=== PATIENT | female | born 1995 | race Caucasian/White ===

== ENCOUNTER 2017-11-08 22:10 | Emergency (ER) | payer OTHER ==
[~2017-11-08] VITALS: Ht 165.1 cm; Wt 86.2 kg
[2017-11-08] MEDS ORDERED: UNISOM50 MG PO (22:26)
[2017-11-08] MEDS ORDERED: PRENATA CHEWAB1 EACH PO (22:27)
== END 2017-11-09 00:20 | disposition home or self-care (01) ==
LOC: ED 22:10
DX: O98.511 Other viral diseases complicating pregnancy, first trimester (principal); B34.9 Viral infection, unspecified; Z3A.11 11 weeks gestation of pregnancy; Z79.899 Other long term (current) drug therapy
CPT/HCPCS: 80053; 81001; 85025; 87502; 99284

== ENCOUNTER 2018-05-27 23:10 | Inpatient (IN) | payer BC, OTHER ==
[~2018-05-27] VITALS: Ht 165.1 cm; Wt 101.0 kg
[~2018-05-27 23:10] MED LIST: PRENATA CHEWAB1 EACH PO; UNISOM50 MG PO
[2018-05-28] MEDS ORDERED: AMOXICILLIN500 MG PO (01:34)
--- NOTE | 2018-05-28 08:59 | PR ---
[facility] [address] [place], [place] [address] Signed Progress Notes IP Datetime Report Generated by CPN: 05/28/2018 08:59 PROGRESS NOTES: [id number] Impression: Normal progression of labor; Reassuring heart rate Plan: Continue present management Informed Consent Obtain: Vaginal Delivery; Risks, Benefits and Alternatives Discussed VITAL SIGNS: [id number] Vital Signs: Reviewed; Within Normal Limits VS Notable Details: Mild tachycardia EXAM: [id number] Dilatation: 6.0 Effacement: 90 Station: -1 Uterine Contractions: q2-4 minutes MEMBRANES: [id number] Membrane Status: Bulging Comments: Pt seen and examined. Doing well. Comfortable w/ epidural. FHT Cat 1 and reassuring. Reviewed anticipated course of labor. All questions answered. PCN per protocol continues. Fetus A: [id number] FHR Baseline: 135 Variability: Moderate 6-25bpm Accelerations: 15X15 Decelerations: None FHR Category: Category I Presentation: Vertex Comments on Fetus A: No evidence of metabolic acidosis Fetus B: [id number] Signing Physician: Virgen Adan DO Copies: ~ *Electronically Signed* 05/28/18 0859 VIRGEN ADAN DO PATIENT NAME: LINNETTE LEARY PROGRESS NOTE DATE OF : 96 PHYSICIAN: VIRGEN ADAN DO RPT #: [id number] REPORT IS CONFIDENTIAL AND NOT TO BE RELEASED WITHOUT AUTHORIZATION
--- NOTE | 2018-05-28 11:28 | PR ---
[facility] [address] [place], [place] [address] Signed Progress Notes IP Datetime Report Generated by TERRELL: 05/28/2018 11:28 PROGRESS NOTES: [id number] Impression: Normal progression of labor; Reassuring heart rate Procedures: Artificial ROM Plan: Continue present management; Anesthesia consult; Anticipate Vaginal Delivery Informed Consent Obtain: Vaginal Delivery; Risks, Benefits and Alternatives Discussed Other Informed Consents: AROM VITAL SIGNS: [id number] Vital Signs: Reviewed; Within Normal Limits VS Notable Details: Mild tachycardia EXAM: [id number] Dilatation: 9.0 Effacement: 100 Station: -1 Uterine Contractions: q 2-5 minutes MEMBRANES: [id number] Membrane Status: Ruptured Amniotic Fluid Color: Meconium, Light ROM Note: Verbal consent obtained. AROM performed without difficulty for moderate amount meconium tinged fluid. Mother and baby tolerated well. Comments: Pt seen and examined. Doing well. Uncomfortable w/ ctxs' rating pain 7/10. Reviewed AROM and verbal consent obtained. AROM performed without difficulty for moderate amount of light meconium tinged fluid. Mother and baby tolerated will. Anesthesia notified and in to evaluate pain. Anticipate . Fetus A: [id number] FHR Baseline: 135 Variability: Moderate 6-25bpm Accelerations: 15X15 Decelerations: None FHR Category: Category I Presentation: Vertex Other Presentation: DARIELA Comments on Fetus A: No evidence of metabolic acidosis Fetus B: [id number] Signing Physician: Virgen Adan DO Copies: *Electronically Signed* 05/28/18 1128 VIRGEN ADAN DO PATIENT NAME: LINNETTE LEARY PROGRESS NOTE DATE OF : 96 PHYSICIAN: VIRGEN ADAN DO RPT #: [id number] REPORT IS CONFIDENTIAL AND NOT TO BE RELEASED WITHOUT AUTHORIZATION [facility] [address] [place] [place] [address] Signed ~ *Electronically Signed* 05/28/18 1128 VIRGEN ADAN DO PATIENT NAME: LINNETTE LERAY PROGRESS NOTE DATE OF : 96 PHYSICIAN: VIRGEN ADAN DO RPT #: [id number] REPORT IS CONFIDENTIAL AND NOT TO BE RELEASED WITHOUT AUTHORIZATION
--- NOTE | 2018-05-28 13:17 | PR ---
[facility] [address] [place], [place] [address] Signed Progress Notes IP Datetime Report Generated by TERRELL: 05/28/2018 13:17 PROGRESS NOTES: [id number] Impression: Normal progression of labor; Reassuring heart rate Procedures: Artificial ROM Plan: Continue present management Other Plans: Nitrous oxide Informed Consent Obtain: Vaginal Delivery; Risks, Benefits and Alternatives Discussed Other Informed Consents: AROM VITAL SIGNS: [id number] Vital Signs: Reviewed; Within Normal Limits VS Notable Details: Mild tachycardia EXAM: [id number] Dilatation: 9.0 Effacement: 100 Station: -1 Uterine Contractions: q 2-5 minutes MEMBRANES: [id number] Membrane Status: Ruptured Amniotic Fluid Color: Meconium, Light ROM Note: Verbal consent obtained. AROM performed without difficulty for moderate amount meconium tinged fluid. Mother and baby tolerated well. Comments: Pt seen and examined. Doing well. Anesthesia again bolused pt with minimal relief. Discussed nitrous oxide and pt desired. N20 administered and pt reports pain much improved. Reviewed reassuring FHT. Discussed anticipate course of 2nd stage of labor. All questions answered. Fetus A: [id number] FHR Baseline: 130 Variability: Moderate 6-25bpm Accelerations: 15X15 Decelerations: None FHR Category: Category I Presentation: Vertex Other Presentation: DARIELA Comments on Fetus A: No evidence of metabolic acidosis Fetus B: [id number] Signing Physician: Virgen Adan DO *Electronically Signed* 05/28/18 1317 VIRGEN ADAN DO PATIENT NAME: LINNETTE LEARY PROGRESS NOTE DATE OF : 96 PHYSICIAN: ADANVIRGEN DO RPT #: [id number] REPORT IS CONFIDENTIAL AND NOT TO BE RELEASED WITHOUT AUTHORIZATION [address] [place], [place] [address] Signed Copies: ~ *Electronically Signed* 05/28/18 1317 VIRGEN ADAN DO PATIENT NAME: LINNETTE LEARY PROGRESS NOTE DATE OF : 96 PHYSICIAN: VIRGEN ADAN DO RPT #: [id number] REPORT IS CONFIDENTIAL AND NOT TO BE RELEASED WITHOUT AUTHORIZATION
--- NOTE | 2018-05-28 14:20 | PR ---
[facility] [address] [place], [place] [address] Signed Progress Notes IP Datetime Report Generated by TERRELL: 05/28/2018 14:20 PROGRESS NOTES: [id number] Impression: Normal progression of labor; Reassuring heart rate Procedures: Sterile Vag Exam Plan: Continue present management Other Plans: Nitrous oxide Informed Consent Obtain: Vaginal Delivery Other Informed Consents: AROM VITAL SIGNS: Q2202258 Vital Signs: Reviewed; Within Normal Limits VS Notable Details: Mild tachycardia EXAM: [id number] Dilatation: 9.5 Effacement: 100 Station: 0 Uterine Contractions: q2-3 minutes MEMBRANES: [id number] Membrane Status: Ruptured Amniotic Fluid Color: Meconium, Light ROM Note: Verbal consent obtained. AROM performed without difficulty for moderate amount meconium tinged fluid. Mother and baby tolerated well. Comments: Pt seen and examined. Doing well. Comfortable w/ epidural and nitrous. Anterior lip and FHT reassuring. Anticipate . Will start pushing once complete. All questions answered. Fetus A: [id number] FHR Baseline: 135 Variability: Moderate 6-25bpm Accelerations: 15X15 Decelerations: Variable FHR Category: Category II Presentation: Vertex Other Presentation: DARIELA Comments on Fetus A: Variable deceleration w/ SVE. No evidence of metabolic acidosis Fetus B: [id number] Signing Physician: Virgen Adan DO *Electronically Signed* 05/28/18 1420 VIRGEN ADAN DO PATIENT NAME: LINNETTE LEARY PROGRESS NOTE DATE OF : 96 PHYSICIAN: VIRGEN ADAN DO RPT #: [id number] REPORT IS CONFIDENTIAL AND NOT TO BE RELEASED WITHOUT AUTHORIZATION [address] [place], [place] [address] Signed Copies: ~ *Electronically Signed* 05/28/18 1420 VIRGEN ADAN DO PATIENT NAME: LINNETTE LEARY PROGRESS NOTE DATE OF : 96 PHYSICIAN: VIRGEN ADAN DO RPT #: [id number] REPORT IS CONFIDENTIAL AND NOT TO BE RELEASED WITHOUT AUTHORIZATION
--- NOTE | 2018-05-28 15:26 | PR ---
[facility] [address] [place], [place] [address] Signed Progress Notes IP Datetime Report Generated by TERRELL: 05/28/2018 15:26 PROGRESS NOTES: [id number] Impression: Normal progression of labor; Reassuring heart rate Procedures: Scalp Electrode; Sterile Vag Exam Plan: Continue present management Other Plans: Nitrous oxide Informed Consent Obtain: Vaginal Delivery; Risks, Benefits and Alternatives Discussed Other Informed Consents: AROM VITAL SIGNS: [id number] Vital Signs: Reviewed; Within Normal Limits VS Notable Details: Mild tachycardia EXAM: [id number] Dilatation: 10.0 Effacement: 100 Station: 1 Uterine Contractions: q2 minutes MEMBRANES: [id number] Membrane Status: Ruptured Amniotic Fluid Color: Meconium, Light ROM Note: Verbal consent obtained. AROM performed without difficulty for moderate amount meconium tinged fluid. Mother and baby tolerated well. Comments: Pt seen and examined. Doing well. Pushes well w/ contractions. Variable decels noted w/ pushing w/ return to baseline and moderate variability. Discussed importance of accurate monitoring of fetus during 2nd stage of labor, and recommended FSE. Pt understands and agrees. Will push and anticipate . Reviewed risks and indications for operative vaginal and should they be required. Fetus A: [id number] FHR Baseline: 140 Variability: Moderate 6-25bpm Accelerations: 15X15 Decelerations: Variable FHR Category: Category II Presentation: Vertex Other Presentation: DARIELA Comments on Fetus A: Variable deceleration noted w/ pushing. Will monitor closely Fetus B: [id number] Signing Physician: Virgen Adan DO *Electronically Signed* 05/28/18 1526 ADAN,VIRGEN Spencer DO PATIENT NAME: LINNETTE LEARY PROGRESS NOTE DATE OF : 96 PHYSICIAN: VIRGEN ADAN DO RPT #: [id number] REPORT IS CONFIDENTIAL AND NOT TO BE RELEASED WITHOUT AUTHORIZATION [address] [place], [place] [address] Signed Copies: ~ *Electronically Signed* 05/28/18 [facility] JACOBSON,VIRGEN Spencer DO PATIENT NAME: LINNETTE LEARY PROGRESS NOTE DATE OF : 96 PHYSICIAN: VIRGEN ADAN DO RPT #: [id number] REPORT IS CONFIDENTIAL AND NOT TO BE RELEASED WITHOUT AUTHORIZATION
--- NOTE | 2018-05-29 10:54 | PR ---
[facility] [address] [place], [place] [address] Signed PP Progress Notes Datetime Report Generated by CPZiggy: 05/29/2018 10:53 SUBJECTIVE: [id number] Pain: Within normal limits Nausea/Vomiting: Denies Flatus: Yes Bowel Movement: No Vital Signs: [id number] Vital Signs: Reviewed; Within Normal Limits EXAM: [id number] Cardiovascular: Normal Respiratory: Normal Abdomen/Uterus: Normal Lochia: Normal Vulva/Perineum: Normal Breasts: Not Done CVA Tenderness: Normal Extremities: Normal Incision: Not Applicable Progress: Normal Exam Comments: Fundus firm U-2 nontender. Some vulvar edema noted but should not disrupt voiding. Arevalo cath remains in place draining clear urine. IMPRESSION/PLAN/PROCEDURES: [id number] Impression: Normal progression Plan: Continue present management Other Plans: D/C arevalo Progress Notes: Pt seen and examined. Doing well. Ambulating and tolering full diet. Arevalo cath remains in place due to some vulvar edema and pt requsting removal. Pain and lochia minimal. No fevers/chills/lightheadedness or other concerns. Anticipate d/c home tomorrow. Signing Physician: Virgen Adan DO Copies: ~ *Electronically Signed* 05/29/18 1053 VIRGEN ADAN DO PATIENT NAME: LINNETTE LEARY PROGRESS NOTE DATE OF : 96 PHYSICIAN: VIRGEN ADAN #: [id number] REPORT IS CONFIDENTIAL AND NOT TO BE RELEASED WITHOUT AUTHORIZATION
--- NOTE | 2018-05-30 08:21 | PR ---
[facility] [address] [place], [place] [address] Signed PP Progress Notes Datetime Report Generated by CPN: 05/30/2018 08:20 SUBJECTIVE: [id number] Pain: Within normal limits Nausea/Vomiting: Denies Flatus: Yes Bowel Movement: Yes Vital Signs: O0682743 Vital Signs: Reviewed EXAM: [id number] Cardiovascular: Normal Respiratory: Normal Abdomen/Uterus: Normal Lochia: Normal Vulva/Perineum: Not Done Breasts: Not Done CVA Tenderness: Normal Extremities: Normal Incision: Not Applicable Progress: Normal Exam Comments: Fundus Firm U-2 Nontender IMPRESSION/PLAN/PROCEDURES: [id number] Impression: Normal progression Plan: Discharge Other Plans: D/C arevalo Progress Notes: Pt seen and examined. Doing well. Ambulating, tolering full diet, and voiding w/out difficulty. Pain and lochia minimal. No fevers/chills/lightheadedness or other concerns. well. Desires d/c home today. Reviewed pp education and discharge instructions in detail. All questions answered. F/U Dr. Adan 2 wks. Signing Physician: Virgen Adan DO Copies: ~ *Electronically Signed* 05/30/18819 VIRGEN ADAN DO PATIENT NAME: LINNETTE LEARY PROGRESS NOTE DATE OF : 96 PHYSICIAN: VIRGEN ADAN #: [id number] REPORT IS CONFIDENTIAL AND NOT TO BE RELEASED WITHOUT AUTHORIZATION
== END 2018-05-30 14:30 | disposition home or self-care (01) | DRG 807 ==
LOC: FBCO 23:10 → FBC 05-28 00:50
PROVIDERS: ADMIT Obstetrics & Gynecology
PROC: 10E0XZZ Delivery of Products of Conception, External Approach (ICD-10-PCS; principal; 2018-05-28)
PROC: 0KQM0ZZ Repair Perineum Muscle, Open Approach (ICD-10-PCS; 2018-05-28)
PROC: 0UQMXZZ Repair Vulva, External Approach (ICD-10-PCS; 2018-05-28)
PROC: 10907ZC Drainage of Amniotic Fluid, Therapeutic from Products of Conception, Via Natural or Artificial Opening (ICD-10-PCS; 2018-05-28)
PROC: 00HU33Z Insertion of Infusion Device into Spinal Canal, Percutaneous Approach (ICD-10-PCS; 2018-05-28)
PROC: 3E0R3BZ Introduction of Anesthetic Agent into Spinal Canal, Percutaneous Approach (ICD-10-PCS; 2018-05-28)
DX: O99.824 Streptococcus B carrier state complicating childbirth (principal); Z37.0 Single live birth; Z3A.39 39 weeks gestation of pregnancy; O76 Abnormality in fetal heart rate and rhythm complicating labor and delivery; O69.1XX0 Labor and delivery complicated by cord around neck, with compression, not applicable or unspecified; O77.0 Labor and delivery complicated by meconium in amniotic fluid; O70.1 Second degree perineal laceration during delivery; O71.82 Other specified trauma to perineum and vulva; Z87.440 Personal history of urinary (tract) infections
CPT/HCPCS: 01960; 36415; 59025; 85027; 99213; J2540; J2590; J2795; J3010; J7060; J7120

== ENCOUNTER 2018-07-31 23:55 | Emergency (ER) | payer BC, OTHER ==
[~2018-07-31] VITALS: Ht 165.1 cm; Wt 93.0 kg
--- OUTSIDE RECORDS SUMMARY | ~2018-07-31 | XMS | Clinical Summary ---
Demographics + + + | Address | [address] | | | [place] [address] | + + + | Home Phone | | + + + | Preferred Language | Unknown | + + + | Marital Status | Single | + + + | Tenriism Affiliation | Unknown | + + + | Race | Unknown | + + + | Ethnic Group | Unknown | + + + Author + + + | Author | [facility] | + + + | Organization | [facility] | + + + | Address | Unknown | + + + | Phone | Unavailable | + + + Support + + +---------+ + | Name | Relationship | Address | Phone | + + +---------+ + | Kyle Leary | ECON | Unknown | | + + +---------+ + Care Team Providers + +------+ + | Care Oven Operator Name | Role | Phone | + +------+ + | James Adan DO | PP | | + +------+ + Allergies No Known Allergies Current Medications + + +-------+---------+------+------+-------+ | Prescription | Sig. | Disp. | Refills | Star | End | Statu | | | | | | t | Date | s | | | | | | Date | | | + + +-------+---------+------+------+-------+ | Vit-Fe | Take 1 tablet by | | | | | Activ | | Fumarate-FA | mouth daily. | | | | | e | | ( VITAMIN | | | | | | | | PO) | | | | | | | + + +-------+---------+------+------+-------+ Active Problems Not on file Family History + + +------+ + | Medical History | Relation | Name | Comments | + + +------+ + | Diabetes Mellitus II | Maternal | | | | | Grandmoth | | | | | er | | | + + +------+ + | Murmur | Mother | | benign | + + +------+ + | Thyroid disease | Mother | | autoimmune | + + +------+ + | Coronary Artery | Paternal | | NM x 3 | | Disease | Grandfath | | | | | er | | | + + +------+ + + +------+ + + | Relation | Name | Status | Comments | + +------+ + + | Brother | | Alive | | + +------+ + + | Father | | Alive | | + +------+ + + | Maternal Grandmother | | Alive | | + +------+ + + | Mother | | Alive | | + +------+ + + | Paternal Grandfather | | | | | | | (Age | | | | | 71) | | + +------+ + + | Sister | | Alive | | + +------+ + + | Sister | | Alive | | + +------+ + + Social History + +-------+ +--------+------+ | Tobacco Use | Types | Packs/Day | Years | Date | | | | | Used | | + +-------+ +--------+------+ | Never Smoker | | | | | + +-------+ +--------+------+ + +---+---+---+ | Smokeless Tobacco: | | | | | Never Used | | | | + +---+---+---+ + + +---------+ + | Alcohol Use | Drinks/We | oz/Week | Comments | | | ek | | | + + +---------+ + | No | | | | + + +---------+ + + + + + | Currently | Estimated Date of Delivery | Comments | + + + + | Yes | | | + + + + + + + | Sex Assigned at | Date Recorded | | | | + + + | Not on file | | + + + Last Filed Vital Signs + + + + | Vital Sign | Reading | Time Taken | + + + + | Blood Pressure | 118/64 | 12/23/2017 3:32 PM PDT | + + + + | Pulse | 98 | 12/23/2017 3:21 PM PDT | + + + + | Temperature | - | - | + + + + | Respiratory Rate | - | - | + + + + | Oxygen Saturation | 100% | 12/23/2017 3:21 PM PDT | + + + + | Inhaled Oxygen | - | - | | Concentration | | | + + + + | Weight | 90.2 kg (198 lb 12.8 | 12/23/2017 3:21 PM PDT | | | oz) | | + + + + | Height | 165.1 cm (5' 5") | 12/23/2017 3:21 PM PDT | + + + + | Body Mass Index | 33.08 | 12/23/2017 3:21 PM PDT | + + + + Plan of Treatment + + + + + | Health Maintenance | Due Date | Last Done | Comments | + + + + + | Well Child Check | | | | | | 0 | | | + + + + + | Vaccine: | | | | | Dtap/Tdap/Td (1 - | 6 | | | | Tdap) | | | | + + + + + | Cervical Cancer | | | | | Screening (Pap) | 8 | | | + + + + + | Vaccine: Influenza | | | | | (Season Ended) | 9 | | | + + + + + Results Not on filefrom Last 3 Months Insurance + +--------+ +------+-------+---------+ | Payer | Benefi | Subscriber | Type | Phone | Address | | | t Plan | ID | | | | | | / | | | | | | | Group | | | | | + +--------+ +------+-------+---------+ | [employer] | UNITED | [id number] | | | | | | | | | | | | | HEALTH | | | | | | | CARE - | | | | | | | SLC | | | | | + +--------+ +------+-------+---------+ + +--------+ +--------+ + + | Guarantor Name | Accoun | Relation to | Date | Phone | Billing Address | | | t Type | Patient | of | | | | | | | | | | + +--------+ +--------+ + + | DAISY LEARY | Person | Self [birth year] Home: | [id number] | | | [place] | | 1995 | [phone] | [place] [address] | | | rene | | | [phone] | | + +--------+ +--------+ + +
--- OUTSIDE RECORDS SUMMARY | ~2018-07-31 | XMS | Clinical Summary ---
Demographics + + + | Address | [address] | | | [place] [address] | + + + | Home Phone | | + + + | Preferred Language | Unknown | + + + | Marital Status | Single | + + + | Methodist Affiliation | Unknown | + + + | Race | Unknown | + + + | Ethnic Group | Unknown | + + + Author + + + | Author | [facility] | + + + | Organization | [facility] | + + + | Address | Unknown | + + + | Phone | Unavailable | + + + Support + + +---------+ + | Name | Relationship | Address | Phone | + + +---------+ + | Kyle Leary | ECON | Unknown | | + + +---------+ + Care Team Providers + +------+ + | Care Field Sales Executive Name | Role | Phone | + [...] | Coronary Artery | Paternal | | ID x 3 | | Disease | Grandfath [...] +------+-------+---------+ | [employer] | UNITED | [id number] | | | | | | | [...] | Self | [birth year] | Home: | [id number] | | | [place] | | 1995 | [phone] | [place] [address] | | | erne | | | [phone] | | + +--------+ +--------+ + +
[~2018-07-31 23:55] MED LIST changes: +AMOXICILLIN500 MG PO
--- OUTSIDE RECORDS SUMMARY | 2018-07-31 23:58 | XMS ---
PreManage Notification: LINNETTE LEARY Security Occupational Safety Specialist Events No recent Security Events currently on file CRITERIA MET - [facility] - Visits in 30 Days CARE PROVIDERS There are no care providers on record at this time. Shai has no Care Guidelines for this patient. Kasandra VISIT COUNT (12 MO.) [address] TOTAL 4 NOTE: Visits indicate total known visits. ED/UCC VISIT TRACKING (12 MO.) [facility]2018 [facility] COMPLAINT: - ABD PAIN 07/16/2018 16:07 [facility] TYPE: Emergency COMPLAINT: - LUQ ABDOMINAL PAIN 05/12/2018 15:21 [facility] [place] TYPE: Emergency COMPLAINT: - DECREASED MOVEMENT DIAGNOSES: - 37 weeks gestation of - Decreased movements, third trimester, not applicable or unspecified 11/08/2017 22:10 [facility] [place] TYPE: Emergency COMPLAINT: - FEVER, DIAGNOSES: - Viral infection, unspecified - Other specified diseases and conditions complicating , childbirth and the puerperium - 11 weeks gestation of - Other marine oil terminal superintendent (current) drug therapy - Other viral diseases complicating , first trimester INPATIENT VISIT TRACKING (12 MO.) 05/28/2018 00:50 [facility] [place] TYPE: [facility] COMPLAINT: - LABOR DELIVERY DIAGNOSES: - Second degree perineal laceration during delivery - Labor and delivery complicated by meconium in amniotic fluid - Second degree perineal laceration during delivery - Single live - Other specified trauma to perineum and vulva - Labor and delivery complicated by cord around neck, with compression, not applicable or unspecified - Personal history of urinary (tract) infections - Personal history of urinary (tract) infections - Labor and delivery complicated by cord around neck, with compression, not applicable or unspecified - Abnormality in heart rate and rhythm complicating labor and delivery - Streptococcus B carrier state complicating childbirth - Labor and delivery complicated by meconium in amniotic fluid - Other specified trauma to perineum and vulva - Streptococcus B carrier state complicating - Single live - Abnormality in heart rate and rhythm complicating labor and delivery - 39 weeks gestation of - 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
[2018-08-01] MEDS ORDERED: ZOFRAN4 MG PO (01:39)
== END 2018-08-01 01:52 | disposition home or self-care (01) ==
LOC: ED 23:55
DX: R10.11 Right upper quadrant pain (principal); R11.2 Nausea with vomiting, unspecified
CPT/HCPCS: 80053; 81001; 83690; 84703; 85025; 96374; 99284-25; J2405

== ENCOUNTER 2019-10-03 23:23 | Inpatient (IN) | payer OTHER ==
[~2019-10-03] VITALS: Ht 165.1 cm; Wt 105.0 kg
--- OUTSIDE RECORDS SUMMARY | ~2019-10-03 | XMS | Encounter Summary ---
Demographics + + + | Address | [address] | | | [place] [address] | + + + | Home Phone | | + + + | Preferred Language | Unknown | + + + | Marital Status | | + + + | Church Affiliation | 1013 | + + + | Race | Unknown | + + + | Ethnic Group | Unknown | + + + Author + + + | Author | [facility] | | | and [place] | + + + | Organization | [facility] | | | and [place] | + + + | Address | Unknown | + + + | Phone | Unavailable | + + + Support + + +---------+ + | Name | Relationship | Address | Phone | + + +---------+ + | Kyle Burden | ECON | Unknown | | + + +---------+ + | Cuca Tirado | ECON | Unknown | | + + +---------+ + Care Team Providers + +------+ + | Care Unattended Ground Sensor Specialist Name | Role | Phone | + +------+ + | James Adan DO | PCP | | + +------+ + Encounter Details +--------+ + + + + | Date | Type | Department | Care Team | Description | +--------+ + + + + | 12/23/ | Orders Only | [facility] | Conversion | | | 2018 | | CONVERSION [address] | Transaction, | | | | | [address] | Provider Unknown | | | | | [place], [place] | [phone] | | | | | [phone] | | | | | | [phone] | | | +--------+ + + + + Social History + +-------+ +--------+------+ | Tobacco Use | Types | Packs/Day | Years | Date | | | | | Used | | + +-------+ +--------+------+ | Never Smoker | | | | | + +-------+ +--------+------+ + +---+---+---+ | Smokeless Tobacco: | | | | | Never Used | | | | + +---+---+---+ + + + | Sex Assigned at | Date Recorded | | | | + + + | Not on file | | + + + + + + + | Job Start Date | Occupation | Industry | + + + + | Not on file | Not on file | Not on file | + + + + + + + + | Travel History | Travel Start | Travel End | + + + + + + | No recent travel history available. | + + documented as of this encounter Plan of Treatment Not on filedocumented as of this encounter Visit Diagnoses Not on filedocumented in this encounter"
--- OUTSIDE RECORDS SUMMARY | ~2019-10-03 | XMS | Encounter Summary ---
Demographics + + + | Address | [address] | | | [place] [address] | + + + | Home Phone | | + + + | Preferred Language | Unknown | + + + | Marital Status | | + + + | Congregation Affiliation | 1013 | + + + | Race | Unknown | + + + | Ethnic Group | Unknown | + + + Author + + + | Author | [facility] | | | and [place] | + + + | Organization | [facility] | | | [...] Team Providers + +------+ + | Care Plumber Pipe Fitting Name | Role | Phone | + +------+ + | Unknown, Doctor | PCP | | + +------+ + Reason for Visit +--------+ + | Reason | Comments | +--------+ + | Burn | mouth | +--------+ + Encounter Details +--------+---------+ + + + | Date | Type | Department | Care Team | Description | +--------+---------+ + + + | 05/20/ | Office | [facility] | Dest[place], | Srinivas (Primary Dx) | | 2018 | Visit | [facility] | Cristian DIRECTOR OF INTELLIGENCE [address] | | | | | [facility] [address] | [address] [place], | | | | | [address] [place], | [place] [address] | | | | | [place] [address] | [phone] | | | | | [phone] | | | | | | | Alexandr Spaulding NP | | | | | | [address] | | | | | | [place] [address] | | | | | | [phone] | | +--------+---------+ + + + Social History + +-------+ [...] + + documented as of this encounter Last Filed Vital Signs + + + + + | Vital Sign | Reading | Time Taken | Comments | + + + + + | Blood Pressure | 118/72 | 05/20/2017 11:59 AM | | | | | PST | | + + + + + | Pulse | 86 | 05/20/2017 11:59 AM | | | | | PST | | + + + + + | Temperature | 37.1 C (98.7 F) | 05/20/2017 11:59 AM | | | | | PST | | + + + + + | Respiratory Rate | 16 | 05/20/2017 11:59 AM | | | | | PST | | + + + + + | Oxygen Saturation | 98% | 05/20/2017 11:59 AM | | | | | PST | | + + + + + | Inhaled Oxygen | - | - | | | Concentration | | | | + + + + + | Weight | - | - | | + + + + + | Height | - | - | | + + + + + | Body Mass Index | - | - | | + + + + + documented in this encounter Patient Instructions Patient Instructions Alexandr Spaulding NP - 05/20/2017 11:45 AM PSTIce chips and cold drink s for the next several days. Avoid hot meals until burn starts to heal. Ibuprofen 600mg four times a day for the next 7 days. Tylenol 650mg every 4-6 hours as needed (max of 3000 mg in a 24 hour period). Follow up with primary provider as needed for failure to improve over the next 3-5 days Second-Degree Burn A burn occurs when skin is exposed to too much heat, sun, or harsh chemicals. A second-degr ee burn (partial-thickness burn) is deeper than a first-degree burn (superficial burn). It u sually causes a blister to form. The blister may remain intact and gradually go away on its own. Or it may break open. The goal of treatment is to relieve pain and stop infection while the burn heals. Home care Use pain medicine as directed. If no pain medicine was prescribed, you may use jnsy-wvg-ang nter medicine to control pain. If you have chronic liver or kidney disease, talk with your [facility] provider before using acetaminophen or ibuprofen. Also talk with your provider if you've had a stomach ulcer or GI bleeding. General care On the first day, you may put a cool compress on the wound to ease pain. A cool compress is a small towel soaked in cool water. If you were sent home with the blister intact, don't break the blister. The risk for inf ection is greater if the blister breaks. If a bandage was applied, change it once a day, unl ess told otherwise. If the bandage becomes wet or soiled, change it as soon as you can. Sometimes an infection may occur even with proper treatment. Check the burn daily for th e signs of infection listed below. Eat more calories and protein until your wound is healed. Wear a hat, sunscreen, and long sleeves while in the sun to protect the skin. Don't pick or scratch at the wound. Use jkfk-gsu-szohxvp medicines like diphenhydramine for itching. Avoid tight-fitting clothes. To change a bandage: Wash your hands. Take off the old bandage. If the bandage sticks, soak it off under warm running water. Once the bandage is off, gently wash the burn area with mild soap and warm water to jasbir ve any cream, ointment, ooze, or scab. You may do this in a sink, under a tub faucet, or in the shower. Rinse off the soap and gently pat dry with a clean towel. Check for signs of infection listed below. Put any prescribed antibiotic cream or ointment on the wound. Cover the burn with nonstick gauze. Then wrap it with the bandage material. Follow-up care Follow up with your healthcare provider, or as advised. When to seek medical advice Call your healthcare provider right away if you have any of these signs of infection: Fever of 100.4F (38C) or higher, or as directed by your healthcare provider Pain that gets worse Redness or swelling that gets worse Pus comes from the burn Red streaks in your skin coming from the burn Wound doesn't appear to be healing Nausea or vomiting Date Last Reviewed: 04/28/201619998617-5996 [employer]. [address] [place] [address]. All righ ts reserved. This information is not intended as a substitute for professional medical care. Always follow your healthcare professional's instructions. documented in this encounter Progress Notes Alexandr Spaulding NP - 05/20/2017 11:45 AM PSTFormatting of this note might be different fr om the original. Subjective: Patient ID: Daisy Tirado is a 21 y.o. female. This 21 y/o female presents to the clinic today for an oral burn that occurred last night. States she was cooking when she tasted an ingredient the at was hot and burnt the roof of h er mouth. The spoon was stuck to the roof of her mouth initially and she states she believe s there was a blister on the roof of her mouth. The blister did pop. She now complains of sharp ache pain with radiation to her face which is a throbbing sensation. She reports that initially she had no sensation to the roof of her mouth but this has resolved and now has t he constant pain. She reports taking tylenol and ibuprofen for the pain. No past medical history on file. There are no active problems to display for this patient. No current outpatient prescriptions on file. No current facility-administered medications for this visit. Review of Systems HENT: Positive for mouth sores. Objective: BP 118/72 | Pulse 86 | Temp 37.1 C (98.7 F) (Temporal) | Resp 16 | SpO2 98% | Shelly stfeeding? No Physical Exam Constitutional: She is oriented to person, place, and time. She appears well-developed and well-nourished. No distress. HENT: Head: Normocephalic and atraumatic. Mouth/Throat: Uvula is midline. Cardiovascular: Normal rate, regular rhythm, normal heart sounds and intact distal pulses. Pulmonary/Chest: Effort normal and breath sounds normal. Neurological: She is alert and oriented to person, place, and time. Skin: Skin is warm and dry. She is not diaphoretic. Psychiatric: She has a normal mood and affect. Her behavior is normal. Judgment and thought content normal. Nursing note and vitals reviewed. Assessment: Second degree burn to the hard palate Plan: Ice chips and cold drinks for the next several days. Avoid hot meals until burn starts to heal. Ibuprofen 600mg four times a day for the next 7 days. Tylenol 650mg every 4-6 hours as needed (max of 3000 mg in a 24 hour period). Follow up with primary provider as needed for failure to improve over the next 3-5 days Radha Chester CC RACING BOARD MARKER - 05/20/2017 11:45 AM Chen Tirado presents to [facility] today with Chief Complaint of : burn on the roof of her mouth since yesterday. Current medications verified with her at time of visit. Vital signs: BP 118/72 | Pulse 86 | Temp 37.1 C (98.7 F) (Temporal) | Resp 16 | SpO 2 98% | ? No Verbal Report given to: PAVAN Salguero EMMA N documented in this encounter Plan of Treatment Not on filedocumented as of this encounter Visit Diagnoses + + | Diagnosis | + + | Burn - Primary Burn of unspecified site, unspecified degree | + + documented in this encounter"
--- OUTSIDE RECORDS SUMMARY | ~2019-10-03 | XMS | Clinical Summary ---
Demographics + + + | Address | [address] | | | [place] [address] | + + + | Home Phone | | + + + | Preferred Language | Unknown | + + + | Marital Status | | + + + | Evangelical Affiliation | 1013 | + + + | Race | Unknown | + + + | Ethnic Group | Unknown | + + + Author + + + | Author | [facility] | | | and [place] | + + + | Organization | [facility] | | | [...] Team Providers + +------+ + | Care Allopathic Doctor Name | Role | Phone | + +------+ + | James Adan DO | PCP | | + +------+ + Allergies No Known Allergies Medications + + + +---------+------+------+-------+ | Medication | Sig | Dispensed | Refills | Star | End | Statu | | | | | | t | Date | s | | | | | | Date | | | + + + +---------+------+------+-------+ | VIT-FE | Take 1 tablet by | | 0 | 08/2 | | Activ | | FUMARATE-FA PO | mouth daily. | | | 8 | | e | | | | | | 18 | | | + + + +---------+------+------+-------+ Active Problems + + + | | Comments | + + + | Yes | | + + + No known active problems Family History + + +------+ + | Medical History | Relation | Name | Comments | + + +------+ + | Other (see comment) | Maternal | | Diabetes Mellitus II | | | Grandmoth | | | | | er | | | + + +------+ + | Murmur | Mother | | benign | + + +------+ + | Thyroid disease | Mother | | autoimmune | + + +------+ + | Coronary artery | Paternal | | [place] x 3 | | disease | Grandfath | | | | | [...] + + | Maternal Grandmother | | | | + +------+ + + | Mother | | Alive | | + +------+ + + | Mother | | | | + +------+ + + | Paternal Grandfather | | | | | | | (Age | | | | | 71) | | + +------+ + + | Paternal Grandfather | | | | + +------+ + + | [...] | + +---+---+---+ + + + | | Comments | + + + | Yes | | + + + + + [...] recent travel history available. | + + Last Filed Vital Signs + + + + + | Vital Sign | Reading | Time Taken | Comments | + + + + + | Blood Pressure | 118/64 | 12/23/2017 3:33 PM | | | | | PDT | | + + + + + | Pulse | 98 | 12/23/2017 3:33 PM | | | | | PDT | | + + + + + [...] 90.2 kg (198 lb 12.8 | 12/23/2017 3:33 PM | | | | oz) | PDT | | + + + + + | Height | 165.1 cm (5' 5") | 12/23/2017 3:33 PM | | | | | PDT | | + + + + + | Body Mass Index | 33.08 | 12/23/2017 3:33 PM | | | | | PDT | | + + + + + Plan of Treatment + + + + + | Health Maintenance | Due Date | Last Done | Comments | + + + + + | Vaccine: | | | | | Dtap/Tdap/Td (1 - | 8 | | | | Tdap) | | | | + + + + + | Cervical Cancer | | | | | Screening (Pap) | 8 | | | + + + + + | Vaccine: Influenza | | | | | (Season Ended) | 0 | | | + + + + + Results Not on filefrom Last 3 Months Insurance + +--------+ +--------+ +---------+------+ | Payer | Benefi | Subscriber | Effect | Phone | Address | Type | | | t Plan | ID | patricia | | | | | | / | | Dates | | | | | | Group | | | | | | + +--------+ +--------+ +---------+------+ | [employer] | UNITED | [id number] | 04/28/19 | [phone] | | PPO | | | | | 18-Pre | 2 | | | | | HEALTH | | sent | | | | | | CARE | | | | | | | | PPO | | | | | | + +--------+ +--------+ +---------+------+ + +--------+ +--------+ + + | Guarantor Name | Accoun | Relation to | Date | Phone | Billing Address | | | t Type | Patient | of | | | | | | | | | | + +--------+ +--------+ + + | Daisy Tirado | Person | Self [birth year] | [address] | | | [place] | | 1995 | [phone] | [place] [address] | | | rene | | | 6 (Home) | | + +--------+ +--------+ + + Advance Directives + + + + + | Type | Date Recorded | Patient | Explanation | | | | Slip Presser | | + + + + + | Power of | | | | | Route Sales Delivery Driver | | | | + + + + + | Advance | | | | | Directive | | | | + + + + +
[~2019-10-03 23:23] MED LIST changes: +ZOFRAN4 MG PO
--- NOTE | 2019-10-04 04:33 | PR ---
[facility] [address] [facility] [place], [place] [address] Signed Progress Notes IP Datetime Report Generated by CPN: 10/04/2019 04:33 PROGRESS NOTES: [id number] Impression: Slow Progression of Labor Plan: Augmentation Other Informed Consents: Pitocin augmentation VITAL SIGNS: [id number] Vital Signs: Reviewed; Within Normal Limits EXAM: [id number] Dilatation: 4.0 Effacement: 75 Station: -3 MEMBRANES: [id number] Comments: Pt seen and evaluated. Reviewed tocometer reading since insertion of IUPC that show inadequate contractions. Recommended augmentation w/ low dose pitocin. Pt and understand and agree. Fetus A: [id number] FHR Baseline: 130 Variability: Moderate 6-25bpm Accelerations: 15X15 Decelerations: None FHR Category: Category I Presentation: Vertex Comments on Fetus A: No evidence of metabolic acidosis Fetus B: [id number] Signing Physician: Virgen Adan DO Copies: ~ *Electronically Signed* 10/04/19 0433 VIRGEN ADAN DO PATIENT NAME: LINNETTE LEARY PROGRESS NOTE DATE OF : [birth year] PHYSICIAN: VIRGEN ADAN DO [facility] #: [id number] REPORT IS CONFIDENTIAL AND NOT TO BE RELEASED WITHOUT AUTHORIZATION
--- NOTE | 2019-10-04 06:51 | PR ---
[facility] [address] [place], [place] [address] Signed Progress Notes IP Datetime Report Generated by CPN: 10/04/2019 06:51 PROGRESS NOTES: [id number] Impression: Normal progression of labor; Reassuring heart rate Procedures: Sterile Vag Exam Plan: Continue present management Other Informed Consents: Pitocin augmentation VITAL SIGNS: [id number] Vital Signs: Reviewed; Within Normal Limits EXAM: [id number] Dilatation: 6.0 Effacement: 80 Station: -1 Uterine Contractions: q 3 minutes MEMBRANES: [id number] Comments: Pt seen and examined. Doing well and feeling more pelvic pressure. CTXs adequate with pitocin. Early decels with some variable decelerations noted. Continue pitocin and anticipate . Fetus A: [id number] FHR Baseline: 140 Variability: Moderate 6-25bpm Accelerations: 15X15 Decelerations: Early; Variable FHR Category: Category II Presentation: Vertex Other Presentation: DARIELA Comments on Fetus A: No evidence of metabolic acidosis Fetus B: [id number] Signing Physician: Virgen Adan DO Copies: ~ *Electronically Signed* 10/04/19 0651 VIRGEN ADAN DO PATIENT NAME: LINNETTE LEARY PROGRESS NOTE DATE OF : 96 PHYSICIAN: VIRGEN ADAN DO RPT #: [id number] REPORT IS CONFIDENTIAL AND NOT TO BE RELEASED WITHOUT AUTHORIZATION
--- NOTE | 2019-10-04 09:16 | PR ---
[facility] [address] [facility] [place], [place] [address] Signed Progress Notes IP Datetime Report Generated by CPN: 10/04/2019 09:16 PROGRESS NOTES: [id number] Impression: Normal progression of labor; Reassuring heart rate Procedures: Sterile Vag Exam Plan: Anticipate Vaginal Delivery Informed Consent Obtain: Vaginal Delivery Other Informed Consents: Pitocin augmentation VITAL SIGNS: [id number] Vital Signs: Reviewed; Within Normal Limits EXAM: [id number] Dilatation: 10.0 Effacement: 100 Station: -1 Uterine Contractions: q 3 minutes MEMBRANES: [id number] Comments: Pt seen and examined. Doing well. Feeling more pressure. Now complete. Blood glucose 105. Will start pushing. Reviewed anticipated course of 2nd stage of labor Fetus A: [id number] FHR Baseline: 135 Variability: Moderate 6-25bpm Accelerations: 15X15 Decelerations: None FHR Category: Category I Presentation: Vertex Other Presentation: DARIELA Comments on Fetus A: No evidence of metabolic acidosis Fetus B: [id number] Signing Physician: Virgen Adan DO Copies: ~ *Electronically Signed* 10/04/19 0916 VIRGEN ADAN DO PATIENT NAME: LINNETTE LEARY PROGRESS NOTE DATE OF : 96 PHYSICIAN: VIRGEN ADAN DO RPT #: [id number] REPORT IS CONFIDENTIAL AND NOT TO BE RELEASED WITHOUT AUTHORIZATION
--- NOTE | 2019-10-05 08:00 | PR ---
[facility] [facility] [address] [facility] [place], [place] [address] Signed PP Progress Notes Datetime Report Generated by CPN: 10/05/2019 08:00 SUBJECTIVE: [id number] Pain: Within normal limits Nausea/Vomiting: Denies Flatus: Yes Vital Signs: [id number] Vital Signs: Reviewed; Within Normal Limits EXAM: [id number] Cardiovascular: Normal Respiratory: Normal Abdomen/Uterus: Normal Lochia: Normal Vulva/Perineum: Not Done Breasts: Not Done CVA Tenderness: Normal Extremities: Normal Incision: Not Applicable Progress: Normal Exam Comments: Fundus firm U-1 nontender IMPRESSION/PLAN/PROCEDURES: [id number] Impression: Normal progression Plan: Continue present management Progress Notes: Pt doing well. Desires bottle feeding. No concerns. Anticipate d/c home tomorrow due to GBS carrier status. Signing Physician: Virgen Adan DO Copies: ~ *Electronically Signed* 10/05/19 0800 VIRGEN ADAN DO PATIENT NAME: LINNETTE LEARY PROGRESS NOTE DATE OF : 96 PHYSICIAN: VIRGEN ADAN DO RPT #: [id number] REPORT IS CONFIDENTIAL AND NOT TO BE RELEASED WITHOUT AUTHORIZATION
--- NOTE | 2019-10-06 08:51 | PR ---
[facility] [address] [place], [place] [address] Signed PP Progress Notes Datetime Report Generated by CPN: 10/06/2019 08:51 SUBJECTIVE: [id number] Pain: Within normal limits Nausea/Vomiting: Denies Flatus: Yes Vital Signs: [id number] Vital Signs: Reviewed; Within Normal Limits EXAM: [id number] Cardiovascular: Normal Respiratory: Normal Abdomen/Uterus: Normal Lochia: Normal Vulva/Perineum: Not Done Breasts: Not Done CVA Tenderness: Normal Extremities: Normal Incision: Not Applicable Progress: Not Applicable Exam Comments: fundus firm U-2 nontender IMPRESSION/PLAN/PROCEDURES: [id number] Impression: Normal progression Plan: Discharge Progress Notes: Pt seen and examined. Doing well. Ambulating voiding and tolerating full diet. Pain and lochia minimal. Bottle feeding. No fevers/chills or other concerns. D/C home. Reviewed d/c instructions in detail. Signing Physician: Virgen Adan DO Copies: ~ *Electronically Signed* 10/06/19 0851 VIRGEN ADAN DO PATIENT NAME: GIBRANLINNETTE ALVARADO PROGRESS NOTE DATE OF : 96 PHYSICIAN: VIRGEN ADAN DO RPT #: [id number] REPORT IS CONFIDENTIAL AND NOT TO BE RELEASED WITHOUT AUTHORIZATION
== END 2019-10-06 10:15 | disposition home or self-care (01) | DRG 807 ==
LOC: FBCO 23:23 → FBC 23:47
PROVIDERS: ADMIT Obstetrics & Gynecology
PROC: 10E0XZZ Delivery of Products of Conception, External Approach (ICD-10-PCS; principal; 2019-10-04)
PROC: 0HQ9XZZ Repair Perineum Skin, External Approach (ICD-10-PCS; 2019-10-04)
PROC: 00HU33Z Insertion of Infusion Device into Spinal Canal, Percutaneous Approach (ICD-10-PCS; 2019-10-04)
PROC: 3E0R3BZ Introduction of Anesthetic Agent into Spinal Canal, Percutaneous Approach (ICD-10-PCS; 2019-10-04)
DX: O24.420 Gestational diabetes mellitus in childbirth, diet controlled (principal); Z37.0 Single live birth; Z3A.38 38 weeks gestation of pregnancy; O99.824 Streptococcus B carrier state complicating childbirth; O76 Abnormality in fetal heart rate and rhythm complicating labor and delivery; O99.214 Obesity complicating childbirth; E66.9 Obesity, unspecified; O70.0 First degree perineal laceration during delivery
CPT/HCPCS: 01960; 36415; 85027; A9270; J2540; J2590; J2795; J7121

== ENCOUNTER 2020-11-10 20:55 | Inpatient (IN) | payer OTHER ==
--- NOTE | 2020-11-11 00:04 | NUR ---
PT WAS SWABBED FOR COVID 19
--- NOTE | 2020-11-11 04:00 | PR ---
[facility] [address] [place], [place] [address] Signed Progress Notes IP Datetime Report Generated by CPN: 11/11/2020 04:00 PROGRESS NOTES: [id number] Impression: Normal Progression of Labor; Reassuring Heart Rate Procedures: Artificial ROM Plan: Continue Present Management; Anticipate Vaginal Delivery Informed Consent Obtain: Vaginal Delivery VITAL SIGNS: [id number] Vital Signs: Reviewed; Within Normal Limits EXAM: [id number] Dilatation: 7.0 Effacement: 90 Station: -3 MEMBRANES: [id number] Membranes Status: Bulging Comments: Pt seen and examined. Doing well. Comfortable w/ epidural. Bulging residual forebag of membranes noted on and discussed AROM. Vertex well applied and AROM performed easily for moderate amount of clear fluid. Bloody show also present. Discussed anticipated course of labor / delivery. Anticipate soon FETUS A: [id number] FHR Baseline: 140 Variability: Moderate 6-25bpm Accelerations: 15X15 Decelerations: None FHR Category: Category I Presentation: Vertex Comments on Fetus A: No evidence of metabolic acidosis FETUS B: [id number] Signing Physician: Virgen Adan DO Copies: ~ *Electronically Signed* 11/11/20 0400 VIRGEN ADAN DO PATIENT NAME: LINNETTE LEARY PROGRESS NOTE DATE OF : 96 PHYSICIAN: VIRGEN ADAN DO RPT #: [id number] REPORT IS CONFIDENTIAL AND NOT TO BE RELEASED WITHOUT AUTHORIZATION
--- NOTE | 2020-11-12 07:41 | PR ---
[facility] [address] [facility] [place], [place] [address] Signed PP Progress Notes Datetime Report Generated by CPN: 11/12/2020 07:41 SUBJECTIVE: [id number] Pain: Within Normal Limits Nausea/Vomiting: Denies Flatus: Yes Bowel Movement: No Vital Signs: [id number] Vital Signs: Reviewed; Within Normal Limits Cardiovascular: Normal Respiratory: Normal Abdomen/Uterus: Normal Lochia: Normal CVA Tenderness: Normal Extremities: Normal Incision: Not Applicable Progress: Normal Exam Comments: Fundus firm U-2 nontender IMPRESSION/PLAN/PROCEDURES: [id number] Impression: Normal Progression Plan: Discharge Progress Notes: Pt seen and examined. Doing well. Ambulating, voiding, and tolerating full diet. Pain and lochia minimal. Bottlefeeding. Desires d/c home today. All questions answered. Planning OCPs for contraception / PMS/PMDD Signing Physician: Virgen Adan DO Copies: ~ *Electronically Signed* 11/12/20 0741 VIRGEN ADAN DO PATIENT NAME: LINNETTE LEARY PROGRESS NOTE DATE OF : 96 PHYSICIAN: VIRGEN ADAN DO [facility] #: [id number] REPORT IS CONFIDENTIAL AND NOT TO BE RELEASED WITHOUT AUTHORIZATION
== END 2020-11-12 12:20 | disposition home or self-care (01) | DRG 807 ==
LOC: FBCO 20:55 → FBC 23:06
PROVIDERS: ADMIT Obstetrics & Gynecology; ATTEND Obstetrics & Gynecology
PROC: 10E0XZZ Delivery of Products of Conception, External Approach (ICD-10-PCS; principal; 2020-11-11)
PROC: 10907ZC Drainage of Amniotic Fluid, Therapeutic from Products of Conception, Via Natural or Artificial Opening (ICD-10-PCS; 2020-11-11)
PROC: 3E0R3BZ Introduction of Anesthetic Agent into Spinal Canal, Percutaneous Approach (ICD-10-PCS; 2020-11-11)
PROC: 00HU33Z Insertion of Infusion Device into Spinal Canal, Percutaneous Approach (ICD-10-PCS; 2020-11-11)
DX: O76 Abnormality in fetal heart rate and rhythm complicating labor and delivery (principal); Z37.0 Single live birth; O69.1XX0 Labor and delivery complicated by cord around neck, with compression, not applicable or unspecified; O64.0XX0 Obstructed labor due to incomplete rotation of fetal head, not applicable or unspecified; O99.344 Other mental disorders complicating childbirth; O99.214 Obesity complicating childbirth; E66.9 Obesity, unspecified; F41.9 Anxiety disorder, unspecified; Z3A.38 38 weeks gestation of pregnancy; Z86.16 Personal history of COVID-19
CPT/HCPCS: 01960; 85027; A9270; C9803; J2590; J3010; J7121; U0003